=== PATIENT | female | born 1955 | race African-American/Black ===

== ENCOUNTER → 2017-04-04 | Outpatient (CLI) | payer BC | LOC: NM 03-29 11:00 → ECHO 03-29 11:30 → NM 03-29 13:00 | DX: R07.89 Other chest pain (principal); R94.31 Abnormal electrocardiogram [ECG] [EKG]; E78.5 Hyperlipidemia, unspecified; I10 Essential (primary) hypertension; R53.81 Other malaise; R53.83 Other fatigue; R00.1 Bradycardia, unspecified | CPT/HCPCS: ECHO; 78452; 93017; 93306; A9502 ==

== ENCOUNTER → 2020-12-28 | Outpatient (CLI) | payer MEDICARE ==
[~2020-12-28] MED LIST: ALDACTONE50 MG PO; CYMBALTA 30 MG30 MG PO; LOTREL 5-10 MG1 EACH PO; MOBIC15 MG PO; PROTONIX40 MG PO
== END ==
LOC: EMI 10:00
DX: S83.281A Other tear of lateral meniscus, current injury, right knee, initial encounter (principal); S83.241A Other tear of medial meniscus, current injury, right knee, initial encounter; M23.011 Cystic meniscus, anterior horn of medial meniscus, right knee; X58.XXXA Exposure to other specified factors, initial encounter
CPT/HCPCS: 73721